=== PATIENT | female | born 2000 | race Caucasian/White ===

== ENCOUNTER 2018-09-08 16:17 | Emergency (ER) | payer SELFPAY ==
[~2018-09-08] VITALS: Ht 157.5 cm; Wt 50.5 kg
[2018-09-08] MEDS ORDERED: MELO7.5T29 PO (17:08)
[2018-09-08] MEDS ORDERED: SULF1TAB24 PO (17:08)
--- NOTE | 2018-09-08 17:10 | PHYS DOC ---
Past History Past Medical History: No Pertinent History Past Surgical History: No Surgical History Alcohol Use: None Drug Use: Marijuana Adult General Chief Complaint Chief Complaint: SKIN PROBLEM HPI HPI Patient is a 18-year-old female who presents with a right back "lump" that started approximately 2 days ago. Mild discomfort. Worse with laying flat on her back. No fever. No redness. No trauma. Patient is concerned because she had a previous breast lump several years ago that resolved on its own without any surgical intervention. Nothing seems to make this lump today any better or worse.[] Review of Systems Review of Systems Constitutional: Denies fever or chills [] Eyes: Denies change in visual acuity, redness, or eye pain [] HENT: Denies nasal congestion or sore throat [] Respiratory: Denies cough or shortness of breath [] Cardiovascular: No chest pain or palpitations[] GI: Denies abdominal pain, nausea, vomiting, bloody stools or diarrhea [] : Denies dysuria or hematuria [] Musculoskeletal: Denies back pain or joint pain [] Integument: Denies rash, see history of present illness[] Neurologic: Denies headache, focal weakness or sensory changes [] Endocrine: Denies polyuria or polydipsia [] All other systems were reviewed and found to be within normal limits, except as documented in this note. Allergies Allergies Allergies Coded Allergies Type Severity Reaction Last Updated Verified No Known Drug Allergies 09/08/18 No Physical Exam Physical Exam Constitutional: Well developed, well nourished, no acute distress, non-toxic appearance. [] HENT: Normocephalic, atraumatic, bilateral external ears normal, oropharynx moist, no oral exudates, nose normal. [] Eyes: PERRLA, EOMI, conjunctiva normal, no discharge. [] Neck: Normal range of motion, no tenderness, supple, no stridor. [] Cardiovascular:Heart rate regular rhythm, no murmur [] Lungs & Thorax: Bilateral breath sounds clear to auscultation [] Abdomen: Not examined[] Skin: Warm, dry, no erythema, no rash. [] Back: No tenderness, no CVA tenderness. There is an approximate 2 cm nodule in her right low back, inferior to the costovertebral angle. There is no fluctuance , no erythema. [] Extremities: No tenderness, no cyanosis, no clubbing, ROM intact, no edema. [] Neurologic: Alert and oriented X 3, normal motor function, normal sensory function, no focal deficits noted. [] Psychologic: Affect normal, judgement normal, mood normal. [] Current Patient Data Vital Signs Vital Signs Date Time Temp Pulse Resp B/P (MAP) Pulse Ox O2 Delivery O2 Flow Rate FiO2 09/08/18 16:17 98.1 84 18 100 Room Air EKG EKG [] Radiology/Procedures Radiology/Procedures [] Course & Med Decision Making Course & Med Decision Making Pertinent Labs and Imaging studies reviewed. (See chart for details) ED course and medical decision making: Patient arrived, was placed in bed, in tolerated exam well. This does not appear to be a staph scalded skin syndrome, toxic epidermal necrolysis, Hinojosa-Olegario syndrome, nor other significant skin lesion. There is no evidence of this being an abscess. However, we will attempt a course of outpatient antibiotics and give patient points of contact for follow-up with primary care for further evaluation and treatment. Discussed this plan with the patient who voiced understanding. All questions were answered. Patient was discharged in improved condition.[] Dragon Disclaimer Dragon Disclaimer This electronic medical record was generated, in whole or in part, using a voice recognition dictation system. Departure Departure: Impression: Primary Impression: Skin nodule Disposition: HOME, SELF-CARE Condition: IMPROVED Referrals: PCPMYRAN[facility] (PCP) Patient Instructions: Rash Additional Instructions: Follow-up with your regular doctor in 2 days. If you do not have a regular doctor list of local clinics will be provided for you to follow up with one of them in 2 days. Return to the ER if worsening pain, you develop a fever of more than 101, there is purulent drainage, or any other concerns. Scripts Sulfamethoxazole/Trimethoprim (BACTRIM DS TABLET) 1 Each Tablet 1 TAB PO BID for back nodule, #20 TAB Prov: NICHOLAS MAURER DO 09/08/18 Meloxicam (MELOXICAM) 7.5 Mg Tablet 7.5 MG PO DAILY for PAIN, #20 TAB Prov: NICHOLAS MAURER DO 09/08/18 NICHOLAS MAURER DO Sep 08, 2018 17:10
[2018-09-08 17:13] VITALS: BP 106/60
== END 2018-09-08 17:13 | disposition home or self-care (01) ==
LOC: ER 16:17
DX: R22.2 Localized swelling, mass and lump, trunk (principal)
CPT/HCPCS: 99283